=== PATIENT | male | born 1965 | race Caucasian/White ===

== ENCOUNTER → 2018-03-05 16:41 | Outpatient (CLI) | payer OTHER, SELFPAY ==
[2018-03-05 17:23] LABS: Hemoglobin A1c 6.9 % (4.2-6.3)
== END ==
PROVIDERS: Family Provider Family Medicine; PCP Family Medicine; Visit Provider Nurse Practitioner
DX: E11.9 Type 2 diabetes mellitus without complications (principal)
CPT/HCPCS: 36415; 83036